=== PATIENT | male | born 1995 | race Asian ===

== ENCOUNTER 2019-08-17 16:11 | Emergency (ER) | payer OTHER ==
[~2019-08-17] VITALS: Ht 180.3 cm; Wt 81.6 kg
[2019-08-17] MEDS ORDERED: ETOMIDATE (2MG/ML) 20ML VIAL IV ONE (17:00)
[2019-08-17] MEDS ORDERED: fentaNYL CITRATE 100 MCG/2 ML VL IV ONE ×2 (17:00)
[2019-08-17 18:00] VITALS: BP 131/80
== END 2019-08-17 18:28 | disposition home or self-care (01) ==
LOC: EDBD 16:11 → ER 16:13
DX: S43.005A Unspecified dislocation of left shoulder joint, initial encounter (principal); W00.0XXA Fall on same level due to ice and snow, initial encounter; Y93.23 Activity, snow (alpine) (downhill) skiing, snowboarding, sledding, tobogganing and snow tubing; Y92.89 Other specified places as the place of occurrence of the external cause; Y99.8 Other external cause status
CPT/HCPCS: 23650; 73020; 73030; 99285; J3010